=== PATIENT | male | born 1960 | race Caucasian/White ===

== ENCOUNTER 2020-11-09 20:42 | Emergency (ER) | payer SELFPAY ==
[2020-11-09 20:48] VITALS: BP 160/93; PULSE 90; RESP 20; TEMP 36.8; O2SAT 97; BMI 28.1
== END 2020-11-09 22:46 | disposition left against medical advice (07) ==
PROVIDERS: Emergency Provider Emergency Medicine
DX: F11.23 Opioid dependence with withdrawal (principal); T40.2X5A Adverse effect of other opioids, initial encounter; Y92.9 Unspecified place or not applicable
CPT/HCPCS: 99281; 99282

== ENCOUNTER 2021-01-29 12:20 | Emergency (ER) | payer OTHER, SELFPAY ==
[2021-01-29 12:24] VITALS: BP 140/95; PULSE 70; RESP 18; TEMP 37.1; O2SAT 97; BMI 26.6
--- NOTE | 2021-01-29 12:30 | ED.GENADULT ---
HPI - General Adult General Chief complaint: General Medical Stated complaint: MEDICATION Time Seen by Provider: 01/29/21 12:28 Source: patient Mode of arrival: ambulatory Limitations: no limitations History of Present Illness HPI narrative: ran out of suboxone - mostly filled from EDs or friends - taking one film a day low dose and cutting it in half, issues post surgery and being on dilaudid. last dose on saturday complaint: suboxone refill Onset (ago): month(s) Severity: mild Quality: aching Relieving factors: none Exacerbating factors: none Associated symptoms: denies other symptoms Treatments prior to arrival: none Related Data Previous Rx's Medication Instructions Recorded buprenorphine 2 mg-naloxone 0.5 mg 1 film BUCCAL DAILY #4 ea 01/29/21 sublingual film (Suboxone) Allergies Allergy/AdvReac Type Severity Reaction Status Date / Time No Known Allergies Allergy Verified 11/09/20 20:48 Review of Systems Review of Systems: Constitutional : No Fever, No Chills, Cardiovascular : No Chest Pain, No SOB Respiratory : No Dyspnea Gastrointestinal : No abdominal pain Musculoskeletal : No Joint Swelling, pos aches Skin : No rash, no skin laceration Neuro : No Weakness, No Numbness Psych : No SI/HI PMFSH Past Medical History Attestation statement: The following information was validated with the patient. Medical History Depression Hypothyroidism Opiate dependence Surgical History (Updated 11/09/20 @ 20:57 by Laverne Tinajero RN) History of back surgery S/P lumbar fusion Social History Social History (Updated 01/29/21 @ 12:58 by Shanice Chavez DO) Patient Tobacco Use Status: Tobacco use Unknown Advance Directives: No Advance Directives Information Provided: No Physical Exam Vital Signs: Vital Signs: Last Vital Signs Temp 98.7 F 01/29/21 12:24 Pulse 70 01/29/21 12:24 Resp 18 01/29/21 12:24 BP 140/95 H 01/29/21 12:24 Pulse Ox 97 01/29/21 12:24 Body Mass Index 26.6 Appearance: Alert. Oriented X3. No acute distress. Eyes: Pupils equal, round and reactive to light. Neck: Normal inspection. Neck supple. CVS: Pulses normal. Respiratory: No respiratory distress. Abdomen: Soft and nontender. Skin: Skin warm and dry. Normal skin color. Neuro: Oriented X 3. No motor deficit. No sensory deficit. Medical Decision Making MDM Narrative Medical decision making narrative: 60 yo male here with opiate use disorder - requesting suboxone refill stretching one film throughout the day last dose on Saturday - recovery team involved - will follow up in clinic and dose 2/0.5 daily Discharge Plan Discharge Clinical Impression: Opiate dependence, continuous Patient Disposition: Home, Self-Care Instructions: Opioid Use Disorder (ED) Additional Instructions: return to ED for any worsening symptoms or concerns please follow up with our outpatient providers Prescriptions: New buprenorphine-naloxone [Suboxone] 2-0.5 mg film 1 film buccal DAILY Qty: 4 RF: 0
--- NOTE | 2021-01-29 13:02 | MHC.RECOVSUP ---
Recovery Support note: Patient is a 60 year old [place] speaking male who presented to [facility] ED seeking a Suboxone prescription. Patient reports he has been in recovery for many years however had back surgery in July and was put on Dilaudid for pain management. Patient reports experiencing withdrawal symptoms after the Dilaudid was discontinued and he began using Suboxone that he obtained from friends and coworkers. Patient reports he would cut the films to get them to last as long as possible and that he typically takes 1mg a day. Discussed Suboxone maintenance through [facility] with patient. Patient is reluctant to engage with a clinic however acknowledges that his way isn't working. Discussed case with patient's ED provider. Patient will be medicated here in the ED and discharged with a script to bridge him until an appointment at a clinic. This fha underwriter discussed plan with patient and provided him with information on clinics in his area.
[2021-01-29] MEDS: Buprenorphine/Naloxone 2/0.5mg FILM 1 FILM SUBLINGUAL (13:12)
== END 2021-01-29 13:17 | disposition home or self-care (01) ==
PROVIDERS: Emergency Provider Emergency Medicine
DX: F11.20 Opioid dependence, uncomplicated (principal)
CPT/HCPCS: 99283